=== PATIENT | male | born 1985 | race Caucasian/White ===

== ENCOUNTER 2020-05-24 16:16 | Emergency (ER) | payer OTHER ==
[~2020-05-24] VITALS: Ht 190.5 cm; Wt 82.0 kg
[2020-05-24] MEDS ORDERED: METOCLOPRAMIDE 10 MG TAB PO ONE (18:45)
[2020-05-24] MEDS ORDERED: BACLOFEN 10 MG TAB PO ONE (18:45)
[2020-05-24] MEDS ORDERED: GABAPENTIN 300 MG CAP PO ONE (18:45)
[2020-05-24] MEDS ORDERED: BACL10TA2 PO (18:52)
[2020-05-24] MEDS ORDERED: GABA-282 PO (18:52)
[2020-05-24] MEDS ORDERED: REGL10TA6 PO (18:52)
[2020-05-24 19:10] VITALS: BP 133/78
== END 2020-05-24 19:11 | disposition home or self-care (01) ==
LOC: M ED 16:16
DX: R06.6 Hiccough (principal); Z87.820 Personal history of traumatic brain injury; Z79.899 Other long term (current) drug therapy

== ENCOUNTER 2020-09-05 06:54 | Day surgery (SDC) | payer OTHER ==
[~2020-09-05] VITALS: Ht 188 cm; Wt 80.7 kg
[~2020-09-05 06:54] MED LIST: BACL10TA2 PO; GABA-282 PO; NS 1,000 ML IV ONE; OMEP-218; REGL10TA6 PO
[2020-09-05] MEDS ORDERED: fentaNYL 100 MCG/2 ML INJECTION (J3010) As Ordered ONE (07:21)
[2020-09-05] MEDS ORDERED: propofoL 200 MG/20 ML VIAL As Ordered ONE (07:22)
[2020-09-05] MEDS ORDERED: LIDOCAINE 2% MDV 20ML VIAL As Ordered ONE (07:23)
[2020-09-05] MEDS ORDERED: MIDAZOLAM INJ 2MG/2ML VIAL (J2250 PER 1MG) As Ordered ONE (07:56)
--- NOTE | 2020-09-05 08:11 | ROOR ---
Patient Name: Bruno Goldberg Procedure Date: 09/05/2020 7:57 AM Date of : 1985 Age: 35 Room: [facility] Gender: Male Note Status: Finalized Procedure: Upper Endoscopy + Biopsies Indications: Heartburn, Vomiting Providers: Jus Ashley MD Referring MD: WALDO HOGUE MD Requesting Provider: Medicines: Monitored Anesthesia Care Complications: No immediate complications. Procedure: Pre-Anesthesia Assessment: - The heart rate, respiratory rate, oxygen saturations, blood pressure, adequacy of pulmonary ventilation, and response to care were monitored throughout the procedure. The Endoscope was introduced through the mouth, and advanced to the second part of duodenum. The upper GI endoscopy was accomplished without difficulty. The patient tolerated the procedure well. Findings: The Z-line was variable and was found 45 cm from the incisors. Non-severe esophagitis with no bleeding was found 45 cm from the incisors. Biopsies were taken with a cold forceps for histology. Localized mildly erythematous mucosa without bleeding was found in the gastric antrum. Biopsies were taken with a cold forceps for Helicobacter pylori testing. The exam of the duodenum was otherwise normal. Impression: - Z-line variable, 45 cm from the incisors. - Non-severe reflux esophagitis. Rule out Morris's esophagus. Biopsied. - Erythematous mucosa in the antrum. Biopsied. - The examination was otherwise normal. Recommendation: - Patient has a contact number available for emergencies. The signs and symptoms of potential delayed complications were discussed with the patient. Return to normal activities tomorrow. Written discharge instructions were provided to the patient. - High fiber diet. - Discharge patient to home. - Continue present medications. - Await pathology results. - Telephone GI clinic for pathology results in 1 week. - Return to referring physician. - The findings and recommendations were discussed with the patient. Procedure Code(s): --- Professional --- 63464, Esophagogastroduodenoscopy, flexible, transoral; with biopsy, single or multiple Diagnosis Code(s): --- Professional --- K22.8, Other specified diseases of esophagus K21.0, Gastro-esophageal reflux disease with esophagitis K31.89, Other diseases of stomach and duodenum R12, Heartburn R11.10, Vomiting, unspecified CPT copyright 2019 [employer]. All rights reserved. The codes documented in this report are preliminary and upon motor vehicle clerk review may be revised to meet current compliance requirements. Jus Ashley MD Jus Ashley MD 09/05/2020 8:11:21 AM Electronically signed by Jus Ashely MD Number of Addenda: 0 Note Initiated On: 09/05/2020 7:57 AM Estimated Blood Loss: Estimated blood loss: none.
[2020-09-05 08:35] VITALS: BP 139/87
== END 2020-09-05 08:42 | disposition home or self-care (01) ==
LOC: M OPP 06:54
PROVIDERS: ATTEND Internal Medicine Gastroenterology
DX: K22.8 Other specified diseases of esophagus (principal); K21.00 Gastro-esophageal reflux disease with esophagitis, without bleeding; K31.89 Other diseases of stomach and duodenum; R12 Heartburn; R11.10 Vomiting, unspecified; F17.220 Nicotine dependence, chewing tobacco, uncomplicated
CPT/HCPCS: 43239; 88305; J2250; J3010

== ENCOUNTER → 2022-12-26 | Outpatient (REF) | payer OTHER ==
[~2022-12-26] MED LIST changes: -NS 1,000 ML IV ONE; +OMEP-173; -OMEP-218
[2022-12-26 11:30] LABS: SEMEN APPEARANCE OPAQUE (OPAQUE); SEMEN VOLUME 0.4 ML (2.0-5.0)
[2022-12-26 11:31] LABS: SEMEN VISCOSITY VISCOUS (LIQUID); SEMEN WBC <=1 M/ml (<=1 M/ml); SEMEN pH 8.5 (7.0-8.0)
== END ==
LOC: M SMT 11:13
PROVIDERS: ATTEND Physician Assistant
DX: N46.9 Male infertility, unspecified (principal)

== ENCOUNTER 2023-05-03 20:01 | Emergency (ER) | payer OTHER ==
[~2023-05-03] VITALS: Ht 188 cm; Wt 79.1 kg
[2023-05-03] MEDS ORDERED: GABA-282 (20:09)
[2023-05-03] MEDS ORDERED: LIDOCAINE W/EPINEPHRINE 1% 20ML VIAL SC ONE (20:25)
[2023-05-03] MEDS ORDERED: DOXYCYCLINE HYCLATE 100MG TABLET PO ONE (21:20)
[2023-05-03] MEDS ORDERED: DOXY-443 PO (21:22)
[2023-05-03 22:05] VITALS: BP 143/93; TEMP 98.3; O2SAT 98
== END 2023-05-03 22:08 | disposition home or self-care (01) ==
LOC: M ED 20:01
DX: S61.411A Laceration without foreign body of right hand, initial encounter (principal); W26.8XXA Contact with other sharp object(s), not elsewhere classified, initial encounter; Y92.009 Unspecified place in unspecified non-institutional (private) residence as the place of occurrence of the external cause; Y93.89 Activity, other specified; Y99.9 Unspecified external cause status; Z79.891 Long term (current) use of opiate analgesic; Z79.899 Other long term (current) drug therapy

== ENCOUNTER → 2023-08-12 | Outpatient (CLI) | payer OTHER ==
[~2023-08-12] MED LIST changes: +DOXY-443 PO; +GABA-282
[2023-08-12 11:46] LABS: APPEARANCE, URINE CLEAR (CLEAR); BACTERIA, URINE AUTO NEGATIVE (NEGATIVE); BILIRUBIN, URINE AUTO NEGATIVE (NEGATIVE); BLOOD, URINE BLOOD NEGATIVE (NEGATIVE); COLOR, URINE AMBER (YELLOW); GLUCOSE, URINE (UA) AUTO NEGATIVE (NEGATIVE); KETONE, URINE AUTO NEGATIVE (NEGATIVE); LEUKOCYTE ESTERASE, URINE AUTO NEGATIVE (NEGATIVE); MUCUS, URINE SMALL (NEGATIVE); NITRITE, URINE AUTO NEGATIVE (NEGATIVE); PROTEIN, URINE AUTO 1+ mg/dL (NEGATIVE); RBC, URINE AUTO 0 /HPF (0-3); SPECIFIC GRAVITY URINE AUTO 1.016 (1.002-1.035); SQUAMOUS EPITHELIAL CELL UR AU 0 /HPF (0-6); WBC, URINE AUTO 1 /HPF (0-3)
== END ==
LOC: M LAB 08:20
PROVIDERS: ATTEND Urology
DX: N46.01 Organic azoospermia (principal)

== ENCOUNTER → 2023-10-01 | Outpatient (REF) | payer OTHER ==
[~2023-10-01] MED LIST changes: +DOXY-323 PO; -DOXY-443 PO
[2023-10-01 12:20] LABS: APPEARANCE, URINE CLEAR (CLEAR); BACTERIA, URINE AUTO NEGATIVE (NEGATIVE); BILIRUBIN, URINE AUTO NEGATIVE (NEGATIVE); BLOOD, URINE BLOOD NEGATIVE (NEGATIVE); COLOR, URINE YELLOW (YELLOW); GLUCOSE, URINE (UA) AUTO NEGATIVE (NEGATIVE); KETONE, URINE AUTO NEGATIVE (NEGATIVE); LEUKOCYTE ESTERASE, URINE AUTO NEGATIVE (NEGATIVE); MUCUS, URINE SMALL (NEGATIVE); NITRITE, URINE AUTO NEGATIVE (NEGATIVE); PROTEIN, URINE AUTO NEGATIVE (NEGATIVE); RBC, URINE AUTO 0 /HPF (0-3); SPECIFIC GRAVITY URINE AUTO 1.013 (1.002-1.035); SQUAMOUS EPITHELIAL CELL UR AU 0 /HPF (0-6); UROBILINOGEN, URINE AUTO 0.2 mg/dL (0.0-2.0); WBC, URINE AUTO 0 /HPF (0-3)
== END ==
LOC: M SMT 10:38
PROVIDERS: ATTEND Physician Assistant
DX: N46.9 Male infertility, unspecified (principal)

== ENCOUNTER → 2023-10-16 | Outpatient (CLI) | payer OTHER ==
[2023-10-16 12:16] LABS: ESTRADIOL 46.1 PG/ML (<39.8); FOLLICLE STIMULATING HORMONE 19.9 mIU/ML (1.4-18.1)
== END ==
LOC: M LAB 10:02
PROVIDERS: ATTEND Urology
DX: E29.1 Testicular hypofunction (principal)

== ENCOUNTER → 2024-06-20 | Outpatient (REF) | payer OTHER ==
[~2024-06-20] MED LIST changes: -DOXY-323 PO; +DOXY-441 PO; +GABA-1172; +GABA-1172 PO; -GABA-282; -GABA-282 PO
[2024-06-20 11:58] LABS: SEMEN APPEARANCE OPAQUE (OPAQUE); SEMEN VISCOSITY VISCOUS (LIQUID); SEMEN VOLUME 2.5 ML (2.0-5.0); SEMEN WBC <=1 M/ml (<=1 M/ml)
== END ==
LOC: M LAB REF 11:31
PROVIDERS: ATTEND Urology
DX: N46.01 Organic azoospermia (principal)

== ENCOUNTER → 2024-09-22 | Outpatient (REF) | payer OTHER ==
[2024-09-22 12:58] LABS: SEMEN APPEARANCE OPAQUE (OPAQUE); SEMEN VISCOSITY VISCOUS (LIQUID); SEMEN VOLUME 1.2 ML (2.0-5.0); SEMEN WBC <=1 M/ml (<=1 M/ml); SEMEN pH 8.5 (7.0-8.0)
== END ==
LOC: M LAB REF 12:31
PROVIDERS: ATTEND Urology
DX: N46.01 Organic azoospermia (principal)